=== PATIENT | female | born 1940 | race Caucasian/White ===

== ENCOUNTER → 2016-12-22 | Outpatient (REF) | payer MEDICARE, OTHER | LOC: M SFHCLACO 09:56 | PROVIDERS: ATTEND Physician Assistant | DX: N89.8 Other specified noninflammatory disorders of vagina (principal) | CPT/HCPCS: 87070; G0463 ==

== ENCOUNTER → 2017-01-13 | Outpatient (CLI) | payer MEDICARE, OTHER ==
--- NOTE | 2017-01-13 10:11 | REP ---
PELVIC SONOGRAPHY: HISTORY: Vaginal discharge. Pelvic pain. Bilateral back pain. FINDINGS: Transabdominal and transvaginal scanning are performed. Uterine dimensions are normal at 6.0 x 2.2 x 4.1 cm. Endometrial echo 0.3 cm thick. No focal uterine mass lesion is seen. No free fluid is noted. Uterus is tipped somewhat to the left. The visualized bladder mosqueda are smooth. Normal ovaries are seen bilaterally. Right ovary dimensions are 1.5 x 0.7 x 0.6 cm. Left ovary measures 1.9 x 0.9 x 1.8 cm. IMPRESSION: Normal pelvic sonography.
--- NOTE | 2017-01-13 11:55 | REP ---
BILATERAL SCREENING DIGITAL MAMMOGRAM: There are no palpable abnormalities or other breast complaints. The patient states she had a clinical breast exam in December 13, 2016. The comparison is 08/23/2010. There is moderately dense breast parenchyma, unchanged. There are scattered punctate benign calcifications, unchanged. There has been no interval development of masses, areas of structural distortion or clusters of microcalcifications typical of malignancy. IMPRESSION: There is no evidence of malignancy. BI-RADS/ACR category 2 mammogram. Benign finding(s). Routine annual screening mammography (for women over age 40). The patient should have a repeat mammogram in 1 year. This mammogram was interpreted with the aid of an FDA-approved computer-aided detection system. Patient letter M1. SHAR
== END ==
LOC: M WHC 07:51
PROVIDERS: ATTEND Physician Assistant
DX: Z12.31 Encounter for screening mammogram for malignant neoplasm of breast (principal); R10.2 Pelvic and perineal pain; N89.8 Other specified noninflammatory disorders of vagina
CPT/HCPCS: 76830; 76856; G0202

== ENCOUNTER → 2017-06-13 | Outpatient (REF) | payer MEDICARE, OTHER ==
[2017-06-13 14:59] LABS: ALBUMIN 3.8 GM/DL (3.2-5.2); ALBUMIN/GLOBULIN RATIO 1.23 (1.00-1.93); BILIRUBIN,TOTAL 0.3 MG/DL (0.2-1.0); CALCIUM LEVEL 8.9 MG/DL (8.8-10.2); CREATININE FOR GFR 1.05 MG/DL (0.55-1.02); GLOMERULAR FILTRATION RATE 54.4 (>39); MAGNESIUM LEVEL 2.3 MG/DL (1.8-2.4); POTASSIUM SERUM 4.5 MEQ/L (3.5-5.1); TOTAL PROTEIN 6.9 GM/DL (6.4-8.2)
== END ==
LOC: M SFHCLACO 08:18
PROVIDERS: ATTEND Physician Assistant
DX: E78.2 Mixed hyperlipidemia (principal); Z68.31 Body mass index [BMI] 31.0-31.9, adult; E61.2 Magnesium deficiency; E55.9 Vitamin D deficiency, unspecified

== ENCOUNTER → 2017-07-07 | Outpatient (REF) | payer MEDICARE, OTHER | LOC: M LAB REF 18:19 | DX: C44.42 Squamous cell carcinoma of skin of scalp and neck (principal) | CPT/HCPCS: 88305 ==

== ENCOUNTER → 2017-08-07 | Outpatient (CLI) | payer MEDICARE, OTHER ==
[~2017-08-07] MED LIST: GASTROGRAFIN SOLUTION 30ML (Q9963) As Ordered; ISOVUE-370 76% 100ML VIAL (Q9967) As Ordered
== END ==
LOC: M RAD 10:46
DX: R05 Cough (principal); R10.9 Unspecified abdominal pain
CPT/HCPCS: Q9963

== ENCOUNTER 2017-11-17 10:14 | Day surgery (SDC) | payer MEDICARE, OTHER ==
[2017-11-17] MEDS: NS 1,000 ML IV (10:30)
[2017-11-17] MEDS ORDERED: PROPOFOL 200 MG/20 ML VIAL As Ordered (12:14)
[2017-11-17] MEDS ORDERED: LIDOCAINE 2% INJ 100 MG/5 ML SDV (FOR ANES.) As Ordered (12:14)
== END 2017-11-17 13:06 | disposition home or self-care (01) ==
LOC: M OPP 10:14
DX: R19.4 Change in bowel habit (principal); K59.00 Constipation, unspecified; K57.30 Diverticulosis of large intestine without perforation or abscess without bleeding; K64.8 Other hemorrhoids; K21.9 Gastro-esophageal reflux disease without esophagitis; R12 Heartburn; E78.5 Hyperlipidemia, unspecified; C91.10 Chronic lymphocytic leukemia of B-cell type not having achieved remission; Z92.21 Personal history of antineoplastic chemotherapy; D64.9 Anemia, unspecified; M19.90 Unspecified osteoarthritis, unspecified site; M54.2 Cervicalgia; Z78.0 Asymptomatic menopausal state; Z85.828 Personal history of other malignant neoplasm of skin; Z87.891 Personal history of nicotine dependence; Z88.8 Allergy status to other drugs, medicaments and biological substances; Z79.899 Other long term (current) drug therapy
CPT/HCPCS: 45378

== ENCOUNTER → 2017-12-19 | Outpatient (REF) | payer MEDICARE, OTHER ==
[2017-12-19 15:25] LABS: ALBUMIN 3.7 GM/DL (3.2-5.2); ALBUMIN/GLOBULIN RATIO 1.23 (1.00-1.93); ALKALINE PHOSPHATASE 75 U/L (45-117); ALT/SGPT 31 U/L (12-78); ANION GAP 11 MEQ/L (8-16); AST/SGOT 15 U/L (7-37); BILIRUBIN,TOTAL 0.3 MG/DL (0.2-1.0); BLOOD UREA NITROGEN 13 MG/DL (7-18); CALCIUM LEVEL 8.8 MG/DL (8.8-10.2); CARBON DIOXIDE LEVEL 30 MEQ/L (21-32); CHLORIDE LEVEL 106 MEQ/L (98-107); CHOLESTEROL LEVEL 209 MG/DL (<200); CHOLESTEROL RISK RATIO 2.824 (<5); CREATININE FOR GFR 0.99 MG/DL (0.55-1.30); GLOMERULAR FILTRATION RATE 58.2 (>39); GLUCOSE, FASTING 88 MG/DL (70-100); HDL CHOLESTEROL 74 MG/DL (>40); LDL CHOLESTEROL 105.4 MG/DL (<100); MAGNESIUM LEVEL 2.4 MG/DL (1.8-2.4); NON-HDL-C 135 MG/DL; POTASSIUM SERUM 4.3 MEQ/L (3.5-5.1); SODIUM LEVEL 147 MEQ/L (136-145); TOTAL PROTEIN 6.7 GM/DL (6.4-8.2); TRIGLYCERIDES LEVEL 148 MG/DL (<150)
[2017-12-19 15:28] LABS: TOTAL 25(OH) VITAMIN D 23.1 NG/ML (30.0-100.0)
== END ==
LOC: M SFHCLACO 08:05
DX: E78.2 Mixed hyperlipidemia (principal); E61.2 Magnesium deficiency; E55.9 Vitamin D deficiency, unspecified; Z68.31 Body mass index [BMI] 31.0-31.9, adult
CPT/HCPCS: 83735

== ENCOUNTER → 2017-12-25 | Outpatient (CLI) | payer MEDICARE, OTHER | LOC: M WHC 10:15 | DX: Z12.31 Encounter for screening mammogram for malignant neoplasm of breast (principal) | CPT/HCPCS: 77067 ==

== ENCOUNTER → 2018-04-20 | Outpatient (REF) | payer MEDICARE, OTHER | LOC: M SFHCWAGY 14:06 | DX: Z12.4 Encounter for screening for malignant neoplasm of cervix (principal); N95.2 Postmenopausal atrophic vaginitis | CPT/HCPCS: G0123 ==

== ENCOUNTER → 2018-04-24 | Outpatient (CLI) | payer MEDICARE, OTHER | LOC: M WHC 09:29 | DX: N89.8 Other specified noninflammatory disorders of vagina (principal); R93.89 Abnormal findings on diagnostic imaging of other specified body structures | CPT/HCPCS: 76830 ==

== ENCOUNTER 2018-06-13 12:48 | Inpatient (IN) | payer MEDICARE, OTHER ==
[2018-06-13 13:27] LABS: BEDSIDE GLUCOSE 81 MG/DL (83-110)
[2018-06-13 14:22] LABS: BASO % 0.4 % (0.0-1.0); EOS % 0.6 % (0.0-3.0); HEMATOCRIT 39.8 % (36.0-47.0); HEMOGLOBIN 12.7 g/dl (12.0-15.5); IMMATURE GRANULOCYTE % 0.2 % (0-3.0); LYMPH # 0.6 10^3/uL (1.5-4.5); LYMPH % 12.7 % (24.0-44.0); MEAN CORPUSCULAR HEMOGLOBIN 30.9 pg (27.0-33.0); MEAN CORPUSCULAR HGB CONC 31.9 g/dl (32.0-36.5); MEAN CORPUSCULAR VOLUME 96.8 fl (80.0-96.0); MONO # 0.6 10^3/uL (0.0-0.8); MONO % 12.7 % (0.0-5.0); NEUTROPHILS # 3.6 10^3/uL (1.8-7.7); NEUTROPHILS % 73.4 % (36.0-66.0); PLATELET COUNT, AUTOMATED 117 10^3/uL (150-450); RED BLOOD COUNT 4.11 10^6/uL (4.00-5.40); RED CELL DISTRIBUTION WIDTH 12.8 % (11.5-14.5); WHITE BLOOD COUNT 4.9 10^3/uL (4.0-10.0)
[2018-06-13 14:36] LABS: KETONE, URINE AUTO RFX NEGATIVE (NEGATIVE); LEUKOCYTE ESTERASE UR AUTO RFX TRACE (NEGATIVE); MICROSCOPIC INDICATED? RFX YES (NO); MUCUS, URINE RFX SMALL (NEGATIVE); NITRITE, URINE AUTO RFX NEGATIVE (NEGATIVE); RBC, URINE AUTO RFX 4 /HPF (0-3); SPECIFIC GRAVITY UR AUTO RFX 1.012 (1.002-1.035); SQUAM EPITHELIAL CELL UR AURFX 8 /HPF (0-6); WBC, URINE AUTO RFX 5 /HPF (0-3)
[2018-06-13 14:58] LABS: ANION GAP 9 MEQ/L (8-16); BLOOD UREA NITROGEN 18 MG/DL (7-18); CALCIUM LEVEL 8.6 MG/DL (8.8-10.2); CARBON DIOXIDE LEVEL 29 MEQ/L (21-32); CHLORIDE LEVEL 101 MEQ/L (98-107); CK-MB VALUE MASS < 1.0 NG/ML (<3.6); CPK CREATINE PHOSPHOKINASE 27 U/L (26-192); CREATININE FOR GFR 1.13 MG/DL (0.55-1.30); GLOMERULAR FILTRATION RATE 49.8 (>39); GLUCOSE, FASTING 95 MG/DL (70-100); LIPASE 283 U/L (73-393); POTASSIUM SERUM 4.2 MEQ/L (3.5-5.1); SODIUM LEVEL 139 MEQ/L (136-145); THYROID STIMULATING HORMONE 0.901 uIU/ML (0.358-3.740); TROPONIN I < 0.02 NG/ML (< 0.10)
[2018-06-13] MEDS ORDERED: ISOVUE-370 76% 100ML VIAL (Q9967) As Ordered (15:09)
[2018-06-13] MEDS ORDERED: ACETAMINOPHEN 500 MG TAB PO (17:15)
[2018-06-13] MEDS ORDERED: ONDANSETRON 4 MG TAB (S0181) PO (17:15)
[2018-06-13] MEDS: NS 1,000 ML IV (17:38)
[2018-06-13] MEDS ORDERED: MECLIZINE 25 MG TABLET PO (18:00)
[2018-06-13 20:02] LABS: MAGNESIUM LEVEL 2.1 MG/DL (1.8-2.4)
[2018-06-13] MEDS ORDERED: NITROFURANTOIN (MACROBID) 100 MG CAP PO (21:00)
[2018-06-13] MEDS: GABAPENTIN 100 MG CAP PO (21:28)
[2018-06-13] MEDS: EZETIMIBE 10 MG TAB (ZETIA) PO (21:28)
[2018-06-13] MEDS: MAGNESIUM CHLORIDE 64 MG TABCR (SLO MAG) PO (23:00)
[2018-06-13] MEDS: valACYclovir HCL 500 MG TAB PO (23:00)
[2018-06-14] MEDS: NS 1,000 ML IV (00:48)
[2018-06-14 05:25] LABS: HEMATOCRIT 37.6 % (36.0-47.0); HEMOGLOBIN 11.8 g/dl (12.0-15.5); MEAN CORPUSCULAR HEMOGLOBIN 30.3 pg (27.0-33.0); MEAN CORPUSCULAR HGB CONC 31.4 g/dl (32.0-36.5); MEAN CORPUSCULAR VOLUME 96.7 fl (80.0-96.0); PLATELET COUNT, AUTOMATED 101 10^3/uL (150-450); RED BLOOD COUNT 3.89 10^6/uL (4.00-5.40); RED CELL DISTRIBUTION WIDTH 12.9 % (11.5-14.5); WHITE BLOOD COUNT 3.8 10^3/uL (4.0-10.0)
[2018-06-14 05:40] LABS: ANION GAP 5 MEQ/L (8-16); BLOOD UREA NITROGEN 15 MG/DL (7-18); CARBON DIOXIDE LEVEL 30 MEQ/L (21-32); CHLORIDE LEVEL 105 MEQ/L (98-107); CREATININE FOR GFR 1.07 MG/DL (0.55-1.30); GLOMERULAR FILTRATION RATE 53.1 (>39); GLUCOSE, FASTING 95 MG/DL (70-100); SODIUM LEVEL 140 MEQ/L (136-145)
[2018-06-14] MEDS ORDERED: PROHANCE 279.3MG/ML 15ML VIAL (A9576) As Ordered (07:48)
[2018-06-14] MEDS: OMEPRAZOLE 20 MG CAP PO (10:18)
[2018-06-14] MEDS: valACYclovir HCL 500 MG TAB PO (10:19)
[2018-06-14] MEDS: VITAMIN D 1,000 INTERNATIONAL UNITS TABLET PO (10:19)
[2018-06-14] MEDS: GABAPENTIN 100 MG CAP PO (10:19)
[2018-06-15] MEDS ORDERED: PREVNAR 13 VACCINE SYRINGE (CPT CODE:90670) IM (09:00)
== END 2018-06-14 13:05 | disposition home or self-care (01) | DRG 312 ==
LOC: M ED 12:48 → M ED INP 17:37 → M PCU 21:05
PROVIDERS: Hospitalist
DX: R55 Syncope and collapse (principal); C91.10 Chronic lymphocytic leukemia of B-cell type not having achieved remission; R42 Dizziness and giddiness; K21.9 Gastro-esophageal reflux disease without esophagitis; N18.3 Chronic kidney disease, stage 3 (moderate); E66.9 Obesity, unspecified; Z79.899 Other long term (current) drug therapy; Z88.8 Allergy status to other drugs, medicaments and biological substances; E78.5 Hyperlipidemia, unspecified; Z87.891 Personal history of nicotine dependence; K57.30 Diverticulosis of large intestine without perforation or abscess without bleeding

== ENCOUNTER → 2018-12-24 | Outpatient (CLI) | payer MEDICARE, OTHER ==
[~2018-12-24] MED LIST changes: +AZIT-12 PO; +CITRTAB19 PO; +FISH7.5C PO; +FLAX10002 PO; +GABA-1171 PO; -GASTROGRAFIN SOLUTION 30ML (Q9963) As Ordered; -ISOVUE-370 76% 100ML VIAL (Q9967) As Ordered; +MAGN64TASA PO; +MECL1TAB31 PO; +MIRA33504 PO; +MULT1CHW44 PO; +MULT1TAB9 PO; +OMEP40CA97 PO; +ONDA4TAB6 PO; +PREV4POW PO; +SALI0.6528; +SINUPOW7; +TYLE650T35 PO; +VALA1TAB64 PO; +VALT500T PO; +VITA100067 PO; +ZETI10TA16 PO
--- NOTE | 2018-12-24 09:45 | REPMRS ---
Patient History The patient states she had a clinical breast exam in 11/2018. Patient is postmenopausal, had previous chemotherapy at age 75, and has history of skin cancer at age 70 and leukemia at age 75. No known family history of cancer. No Hormone Replacement Therapy 3D TOMOSYNTHESIS WAS PERFORMED. [facility] lifetime risk for breast cancer is 2.6%. Digital Woman Screen Mammo: December 24, 2018 - Exam #: [id number] Bilateral CC and MLO view(s) were taken. Technologist: Julieta Dunlap, Technologist Prior study comparison: December 25, 2017, bilateral digital woman screen mammo performed at [facility]. January 13, 2017, digital woman screen mammo performed at [facility]. FINDINGS: There are scattered fibroglandular densities. There has been no change in the appearance of the mammogram from the prior studies. There is a mild amount of residual fibroglandular tissue which is fairly symmetric. There is no interval development of dominant mass, architectural distortion, or clustered microcalcification suggestive of malignancy. Assessment: BI-RADS/ACR category 1 mammogram. Negative Mammogram. Recommendation Routine screening mammogram in 1 year (for women over age 40). This mammogram was interpreted with the aid of an FDA-approved computer-aided dectection system. Electronically Signed By: Alexei Gaston MD 12/24/18 0944
== END ==
LOC: M WHC 08:54
PROVIDERS: ATTEND Physician Assistant
DX: Z12.31 Encounter for screening mammogram for malignant neoplasm of breast (principal); Z85.828 Personal history of other malignant neoplasm of skin; Z92.21 Personal history of antineoplastic chemotherapy; Z85.6 Personal history of leukemia

== ENCOUNTER → 2019-06-25 | Outpatient (REF) | payer MEDICARE, OTHER | LOC: M LAB REF 15:54 | PROVIDERS: ATTEND Dermatology | DX: C44.321 Squamous cell carcinoma of skin of nose (principal); D23.71 Other benign neoplasm of skin of right lower limb, including hip | CPT/HCPCS: 11102; 11103; 17000; 17110; 88305; G0463 ==

== ENCOUNTER → 2019-07-19 | Outpatient (CLI) | payer MEDICARE, OTHER ==
[~2019-07-19] MED LIST changes: +GASTROGRAFIN SOLUTION 30ML (Q9963) As Ordered ONE; +ISOVUE-370 76% 100ML VIAL (Q9967) As Ordered ONE
--- NOTE | 2019-07-19 18:34 | REP ---
CT PELVIS WITH ORAL AND IV CONTRAST: 07/19/2019. Comparison: 08/07/2017, CT abdomen pelvis: Clinical history: CLL restaging. Technique: Oral Gastrografin 10 ml in 290 ml flavored water for two doses per our bowel contrast protocol along with bolus 100 ml Isovue 370 IV scanning through the pelvis and with reconstructions provided. Bone windows are also reviewed. Findings: The lower poles of kidneys are unremarkable. Those portions of small bowel loops in the lower abdomen and pelvis contrast or fluid-filled not abnormally dilated. Abdominal portion and pelvic portion of the colon show scattered distal left colonic and sigmoid diverticulosis without diverticulitis, colitis, stricture or mass. Uterus not enlarged. No adnexal mass and no pelvic free fluid. No ventral or inguinal hernia nor pathologic sized inguinal adenopathy. I do not see pelvic lymphadenopathy or mass. No fluid in the peritoneal gutters. There is no dilated ureter visible in the lower abdomen and pelvis ureters to the bladder seen here are without stone. No bladder stone, mass or abnormal wall thickening with the bladder only partially filled. Bone windows show the sacrum, iliac bones, acetabuli, hips and ischia without destructive lesion or fracture. There are some degenerative changes in the hips and SI joints as well as lower lumbar spine. Impression: 1. No pelvic or lower abdominal adenopathy, inguinal adenopathy or pelvic mass. 2. No pelvic free fluid. 3. Diverticulosis without diverticulitis, colitis, stricture or mass involving the colon. 4. No inflammatory changes about the cecum. Appendix is absent. Small bowel loops intact. 5. Next no ventral or inguinal hernia. Electronically Signed by Larry Chowdhury MD 07/19/2019 08:52 P
== END ==
LOC: M RAD 14:41
PROVIDERS: ATTEND Internal Medicine Hematology & Oncology
DX: C91.10 Chronic lymphocytic leukemia of B-cell type not having achieved remission (principal)
CPT/HCPCS: 72193; Q9963; Q9967

== ENCOUNTER → 2019-08-02 | Outpatient (CLI) | payer MEDICARE, OTHER ==
[~2019-08-02] MED LIST changes: +COLA100C5 PO; -GASTROGRAFIN SOLUTION 30ML (Q9963) As Ordered ONE; +GNP1000C11 PO; -ISOVUE-370 76% 100ML VIAL (Q9967) As Ordered ONE; +MIRA3350 PO; +QUES4POW PO; +VALA1TAB5 PO; -VALA1TAB64 PO; +VITAD1000T PO; +VITMTA PO
--- NOTE | 2019-08-03 17:21 | REPVR ---
PROCEDURE INFORMATION: Exam: MR Cervical Spine Without and With Contrast Exam date and time: 08/02/2019 10:28 AM Age: 79 years old Clinical indication: Radicular pain (radiculopathy); Location of radicular pain not specified; Additional info: Lbp w/ radiculopathy - neck pain monalisa hand tingling TECHNIQUE: Imaging protocol: Multiplanar magnetic resonance images of the cervical spine without and with intravenous contrast. Contrast material: PROHANCE; Contrast volume: 8 ml; Contrast route: IV; COMPARISON: MRA CAROTID W/O FOL WITH 06/14/2018 8:03 AM FINDINGS: Vertebrae: Normal alignment. Spinal cord: Vague focus of increased cord signal on T2 weighted imaging in the right paracentral aspect of the spinal cord at C2-C3 without corresponding abnormalities on T1 weighted, stir weighted or postcontrast imaging. Unclear the finding is artifactual. A small focus of early demyelination not absolutely excluded. C2-C3: Examination C2-C3 demonstrates unremarkable appearance of the disc. There is mild foraminal narrowing on the right secondary to uncinate joint hypertrophic changes. C3-C4: No significant disc disease. No significant spinal stenosis. C4-C5: Examination of C4-C5 demonstrates intervertebral osteophytes with a broad posterior hard disc protrusion effacing the ventral subarachnoid space with mild cord impingement. There is increased marrow signal adjacent to the inferior endplate of C4 and superior endplate of C5 associated with increased intra discal signal. Although the findings may be degenerative the presence of increased signal in the disc is worrisome for discitis. No significant marrow enhancement on post-contrast imaging. There is moderate bilateral foraminal stenosis secondary to uncinate joint hypertrophic change. C5-C6: Disc space narrowing at C5-C6 with intervertebral osteophytes effacing the ventral subarachnoid space abutting but not compressing the spinal cord. There is moderate to severe bilateral foraminal stenosis secondary to uncinate joint hypertrophic changes. C6-C7: No significant disc disease. No significant spinal stenosis. C7-T1: Unremarkable. Vertebral arteries: Expected flow voids in the vertebral arteries. Soft tissues: Otherwise unremarkable. IMPRESSION: 1. Findings at C4-C5 worrisome for discitis. 2. Vague focus of T2 bright signal in the right erlin cord at C2-C3. As indicated above the finding may be artifactual although an focus of demyelination not excluded. No abnormal enhancement. 3. Multilevel foraminal stenosis as described above. Mild cord impingement secondary to intervertebral osteophytes and bulging annulus at C4-C5. Electronically signed by: Abelino Calvo On 08/03/2019 17:20:49 PM
--- NOTE | 2019-08-03 17:33 | REPVR ---
PROCEDURE INFORMATION: Exam: MR Lumbar Spine Without and With Contrast. Exam date and time: 08/02/2019 10:28 AM Age: 79 years old Clinical indication: Pain; Lumbago with sciatica; Left; Additional info: Lbp w/ radiculopathy - neck pain monalisa hand tingling TECHNIQUE: Imaging protocol: Multiplanar magnetic resonance images of the lumbar spine without and with intravenous contrast. Contrast material: PROHANCE; Contrast volume: 10 ml; Contrast route: IV; COMPARISON: No relevant prior studies available. FINDINGS: Vertebrae: Normal alignment. Schmorl's node inferior endplate of L4. There is enhancement demonstrated within the Schmorl's node which may suggest a subacute etiology. Spinal cord: Normal signal. No cord compression. No abnormal enhancement. L1-L2: No significant disc disease. No significant spinal canal stenosis. No neural foraminal stenosis. L2-L3: There is a mild central spinal stenosis at L2-L3 secondary to diffuse annular bulging, thickened ligamentum flavum with mild facet joint arthropathy. No lateral recess stenosis. No foraminal stenosis. L3-L4: There is a moderate central spinal stenosis at L3-L4 secondary to diffuse annular bulging, thickened ligamentum flavum with facet joint arthropathy. No lateral recess stenosis. No foraminal stenosis. L4-L5: There is a mild central spinal stenosis at L4-L5 secondary to diffuse annular bulging, thickened ligamentum flavum with facet joint arthropathy. No lateral recess stenosis. No foraminal stenosis. L5-S1: Broad right paracentral disc protrusion L5-S1 without obvious neural impingement the supine position. Bilateral facet joint arthropathy. Soft tissues: Unremarkable. IMPRESSION: 1. Schmorl's node inferior endplate of L4. There is enhancement demonstrated within the Schmorl's node which may suggest a subacute etiology. 2. Multilevel spinal stenoses, mild at L2-L3, moderate L3-L4, and mild at L4-L5. Also noted is a broad right paracentral disc protrusion at L5-S1 without obvious neural compromise. Electronically signed by: Abelino aClvo On 08/03/2019 17:32:40 PM
--- NOTE | 2019-08-07 14:48 | MEDONCTEEN ---
Date/Time of Encounter Date of Encounter: Aug 07, 2019 Telephone Encounter Called patient with Mri c spine reading of discitis- no answer, unavailable, left msg to call back before 3:30pm as I will be out of the office by 3:45 or 4pm, requested assistant front desk manager to call PCP for discussion since i'm travelling today and will be out tomorrow. 327pm- MD called but he was not PCP- gave me number [phone] to reach Therese Rodney NP. Closed but office closed was given [phone]. Called and waited, was told they need to find out where she is today, was on hold for another. WAs advised by weekend receptionist that PCP was not in office and no info given for another MD or physician color worker. Called to discuss w/ ER MD Dr. anna that and notified Anita DIAS to call patient to be seen in ER. Sign out given to Dr. Nina Lux, regarding situation. MARLEY BROWN MD Aug 07, 2019 14:48
== END ==
LOC: M PLARAD 07:25
PROVIDERS: ATTEND Internal Medicine Hematology & Oncology
DX: M54.5 Low back pain (principal); M54.2 Cervicalgia

== ENCOUNTER 2019-08-07 17:57 | Inpatient (IN) | payer MEDICARE, OTHER ==
[~2019-08-07] VITALS: Ht 167.6 cm; Wt 91.4 kg
[~2019-08-07 17:57] MED LIST changes: -COLA100C5 PO; -GNP1000C11 PO; -MIRA3350 PO; -QUES4POW PO; -VITAD1000T PO; -VITMTA PO
[2019-08-07] MEDS ORDERED: GNP1000C11 PO (19:49)
[2019-08-07] MEDS ORDERED: VITMTA PO (19:49)
[2019-08-07] MEDS ORDERED: MIRA3350 PO (19:49)
[2019-08-07] MEDS ORDERED: QUES4POW PO (19:49)
[2019-08-07] MEDS ORDERED: COLA100C5 PO (19:49)
[2019-08-07] MEDS ORDERED: VITAD1000T PO (19:49)
--- NOTE | 2019-08-07 20:22 | ECGEPIP ---
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
[2019-08-07 20:40] LABS: BASO % 0.5 % (0.0-1.0); EOS # 0.1 10^3/uL (0.0-0.5); EOS % 1.1 % (0.0-3.0); HEMATOCRIT 37.3 % (36.0-47.0); HEMOGLOBIN 12.2 g/dl (12.0-15.5); LYMPH # 1.3 10^3/uL (1.5-5.0); LYMPH % 30.7 % (24.0-44.0); MEAN CORPUSCULAR HEMOGLOBIN 30.7 pg (27.0-33.0); MEAN CORPUSCULAR HGB CONC 32.7 g/dl (32.0-36.5); MEAN CORPUSCULAR VOLUME 93.7 fl (80.0-96.0); MONO # 0.4 10^3/uL (0.0-0.8); MONO % 10.1 % (0.0-5.0); NEUTROPHILS # 2.5 10^3/uL (1.5-8.5); NEUTROPHILS % 57.6 % (36.0-66.0); PLATELET COUNT, AUTOMATED 151 10^3/uL (150-450); RED BLOOD COUNT 3.98 10^6/uL (4.00-5.40); WHITE BLOOD COUNT 4.4 10^3/uL (4.0-10.0)
[2019-08-07] MEDS: EZETIMIBE 10 MG TAB (ZETIA) PO SCH (21:00)
[2019-08-07] MEDS: DOCUSATE SODIUM 100 MG CAP PO SCH (21:00)
[2019-08-07] MEDS: CHOLESTYRAMINE 4 GM PWD PKT PO SCH (21:00)
[2019-08-07 21:12] LABS: BLOOD UREA NITROGEN 19 MG/DL (7-18); CALCIUM LEVEL 9.5 MG/DL (8.8-10.2); CARBON DIOXIDE LEVEL 28 MEQ/L (21-32); CHLORIDE LEVEL 106 MEQ/L (98-107); CK-MB VALUE MASS 1.2 NG/ML (<3.6); CPK CREATINE PHOSPHOKINASE 50 U/L (26-192); CREATININE FOR GFR 1.02 MG/DL (0.55-1.30); GLOMERULAR FILTRATION RATE 55.9 (>39); GLUCOSE, FASTING 93 MG/DL (70-100); POTASSIUM SERUM 3.8 MEQ/L (3.5-5.1); SODIUM LEVEL 141 MEQ/L (136-145); TROPONIN I < 0.02 NG/ML (< 0.10)
[2019-08-07 21:14] LABS: ERYTHROCYTE SEDIMENTATION RATE 10 mm/hr (0-30)
[2019-08-07] MEDS ORDERED: VANCOMYCIN HCL 1,000 MG, VIAL MATE ADAPTER 1 EACH in D5W 250 ML IV ONE (21:30)
[2019-08-07] MEDS ORDERED: CEFEPIME HCL 2 GM in D5W MINI-BAG PLUS 50 ML IV ONE (21:30)
--- NOTE | 2019-08-07 22:04 | HPEPDOC ---
General Date of Admission 08/07/19 Date of Service: Aug 07, 2019 Chief Complaint The patient is a 79-year-old female admitted with a reason for visit of General Medical. Source: Patient Exam Limitations: No limitations Timing/Duration: Week(s) Severity: Mild History of Present Illness Patient is 79 years old female with past medical history of CLL, vertigo, hyperlipidemia presented to the hospital with increased neck pain. Patient stated that neck pain radiated to the lumbar area, is also associated with hands numbness and tingling bilaterally. Patient stated that she developed these symptoms for past month. Patient was seen by oncologist and recommended MRI of the spine. MRI of the spine showed findings at C4-C5 worrisome for discitis. Patient denied any fever, chills, nausea, vomiting, diarrhea or dysuria. Patient denied any fecal or urinary incontinence. In ER patient was found to have no leukocytosis, no fever. Cefepime IV started Home Medications Scheduled Acetaminophen (Tylenol Arthritis) 650 Mg Tab, 1,300 MG PO BID, (Reported) Calcium Carb, Citrate/Vit D3 (Citracal + D ER Tablet) 1 Tab Tab, 1 TAB PO DAILY, (Reported) Cholecalciferol (Vitamin D3) (Vitamin D3) 1,000 Unit Tablet, 1,000 UNITS PO DAILY, (Reported) Cholestyramine (with Sugar) (Questran Packet) 4 Gm Powd.pack, 4 GM PO QHS, (Reported) Docusate Sodium (Colace) 100 Mg Capsule, 100 MG PO QHS, (Reported) Ezetimibe (Zetia) 10 Mg Tab, 10 MG PO QHS, (Reported) Flaxseed Oil (Flaxseed) 1,000 Mg Capsule, 1 CAP PO DAILY, (Reported) Multivitamins (Thera M Plus Tablet) 1 Each Tablet, 1 TAB PO DAILY, (Reported) [place]-3/Dha/Epa/Fish Oil (Fish Oil EC 1,000 mg Softgel) 1 Cap Cap, 1 CAP PO BID, (Reported) Omeprazole (Omeprazole) 40 Mg Cap, 40 MG PO DAILY, (Reported) Scheduled PRN Gabapentin (Gabapentin) 100 Mg Cap, 100 MG PO TID PRN for PAIN, (Reported) Meclizine HCl (Meclizine HCl) 25 Mg Tab, 25 MG PO for DIZZINESS, (Reported) Ondansetron (Ondansetron Odt) 4 Mg Tab, 4 MG PO Q8H PRN for NAUSEA, (Reported) Polyethylene Glycol 3350 (Miralax) 119 Gm Powder, 17 GM PO DAILY PRN for CONSTIPATION, (Reported) dilute in 8 ounces of water or juice Allergies Coded Allergies: Qmivryn-Qxs-Saf Reductase Inhibitor (Verified Adverse Reaction, Unknown, LEG CRAMPS, 09/27/18) Past Medical History Medical History HYPERLIPIDEMIA GERD CHRONIC LYMPHOCYTIC LEUKEMIA VERTIGO COLONOSCOPY 09/29/2011 Surgical History APPENDECTOMY 1977 ABDOMINAL CYSTS 2001 CATARACTS BILATERAL Family History FATHER: 66 YRS, CAR CRASH MOTHER: 66 YRS, HEART ATTACK SIBLINGS: 513 YRS, ONE BROTHER WITH A BRAIN TUMOR 2 BROTHER(S) , 3 SISTER(S) - HEALTHY. 3 SON(S) , 1 DAUGHTER(S) - HEALTHY. DENIES ANY FAMILY HISTORY OF SKIN OR PANCREATIC CANCER. Social History * Smoker: Denies, former Smoker Alcohol: Denies Drugs: denies A-FIB/CHADSVASC A-FIB History Current/History of A-Fib/PAF?: No Current PO Anticoag Therapy: No Review of Systems Constitutional: Denies: Chills, Fever Eyes: Denies: Pain, Vision change ENT: Denies: Head Aches Skin: Denies: Rash, Lesions Pulmonary: Denies: Dyspnea, Cough Cardiovascular: Denies: Chest Pain Gastrointestinal: Denies: Nausea, Vomiting Genitourinary: Denies: Dysuria, Frequency Hematologic: Denies: Bruising Endocrine: Denies: Polydipsia Musculoskeletal: Reports: Neck Pain, Back Pain Neurological: Reports: Numbness (hands numbness bilaterally) Psych: Reports: Mood Normal Physical Examination General Exam: Positive: Alert Eye Exam: Positive: PERRLA ENT Exam: Positive: Atraumatic Neck Exam: Positive: Supple; Negative: JVD Chest Exam: Positive: Clear to auscultation Heart Exam: Positive: Rate Normal Telemetry: Positive: No significant arrhythmia Abdomen Exam: Positive: Normal bowel sounds Extremity Exam: Negative: Clubbing, Cyanosis Skin Exam: Positive: Nl turgor and temperature Neuro Exam: Positive: Strength at 5/5 X4 ext, Cranial Nerves 3-12 NL Psych Exam: Positive: Mental status NL Vital Signs Vital Signs Date Time Temp Pulse Resp B/P (MAP) Pulse Ox O2 Delivery O2 Flow Rate FiO2 08/07/19 21:15 160/79 (106) 08/07/19 21:12 85 18 95 Nasal Cannula 2.0 08/07/19 17:58 97.1 Laboratory Data Labs 24H Laboratory Tests 2 08/07/19 20:26: Immature Granulocyte % (Auto) 0.0, Neutrophils (%) (Auto) 57.6, Lymphocytes (%) (Auto) 30.7, Monocytes (%) (Auto) 10.1H, Eosinophils (%) (Auto) 1.1, Basophils (%) (Auto) 0.5, Neutrophils # (Auto) 2.5, Lymphocytes # (Auto) 1.3L, Monocytes # (Auto) 0.4, Eosinophils # (Auto) 0.1, Basophils # (Auto) 0.0, Nucleated Red Blood Cells % (auto) 0.0, Erythrocyte Sedimentation Rate 10, Anion Gap 7L, Glomerular Filtration Rate 55.9, Lactic Acid Level 1.0, Calcium Level 9.5, Total Creatine Kinase 50, Creatine Kinase MB 1.2, Creatine Kinase MB Relative Index 2.40, Troponin I < 0.02, C-Reactive Protein, Quantitative 0.30 CBC/BMP Laboratory Tests 08/07/19 20:26 Microbiology Microbiology 08/07/19 Blood Culture, Received Pending Assessment/Plan Patient is 79 years old female with past medical history of CLL, vertigo, hyperlipidemia presented to the hospital with increased neck pain. Patient stated that neck pain radiated to the lumbar area, is also associated with hands numbness and tingling bilaterally. Patient stated that she developed these symptoms for past month. Patient was seen by oncologist and recommended MRI of the spine. MRI of the spine showed findings at C4-C5 worrisome for discitis. Patient denied any fever, chills, nausea, vomiting, diarrhea or dysuria. Patient denied any fecal or urinary incontinence. In ER patient was found to have no leukocytosis, no fever Problems (1) Discitis of cervical region Status: Acute Problem Text: Unknown etiology for now Most likely hematogenous spread. Also patient immunocompromised due to CLL Blood culture, urine culture We will check CRP, ESR Pro calcitonin Cefepime, vancomycin Appreciate agree with ID consult (2) Chronic lymphocytic leukemia of B-cell type in remission Status: Chronic Problem Text: Follow-up with oncologist in outpatient settings Plan / VTE VTE Prophylaxis Ordered?: Yes TIFFANY GAYLE DO Aug 07, 2019 22:04
--- NOTE | 2019-08-07 22:24 | PHACANCOPD ---
PHARMACY VANCOMYCIN DOSING Pt Demographics Demographics Patient Age:79 , Weight:92.500 , Gender: female Adjusted Body Weight Date: 08/07/19, Adjusted Body Weight: Kg Events Past 24 Hours Events Past 24 Hours: NO: Dialysis, Diuretic Therapy, Change in CrCl, Fever, Elevation in WBC, Pending Diagnostics, Pending Procedures, Other Vancomycin Vancomycin Target Ranges: 15-20 mcg/ml Vancomycin Load Y/N: Yes Load Dose Date Time Vancomycin Load Dose: 2000mg Date: 08-07 Time: 2299 Vancomycin Dose Date: 08/07/19. Current Vancomycin Dose: [1000mg q12h] Intermittent Dosing?: No Labs Labs Item Value Date Time White Blood Count 4.4 10^3/uL 08/07/192025 Creatinine 1.02 MG/DL 08/07/192025 Blood Urea Nitrogen 19 MG/DL H 08/07/192025 Glomerular Filtration Rate 55.9 08/07/192025 Vital Signs Label Value Date Time Patient Temperature 97.1 degrees F 08/07/19 1758 Temperature Source Temporal 08/07/19 175 Micro Microbiology 08/07/19 Blood Culture, Received Pending Creatinine Clearance Date:08/07/19. Creatinine Clearance: [~45]. Pending Labs Trough 02- @2300 Assessment and Plan Maintaining Current Dose?: Yes Reason for dose change: No Dose Change Pharmacist Note Pharmacist Note Date: 08/07/19. Pharmacist note:Will monitor and make adjustments as needed. [facility] Aug 07, 2019 22:24
[2019-08-07 23:21] VITALS: BP 162/87
[2019-08-07 23:32] VITALS: BP 139/80
[2019-08-08] MEDS: VANCOMYCIN HCL 1,000 MG, VIAL MATE ADAPTER 1 EACH in D5W 250 ML IV SCH ×2 (00:47→11:37)
[2019-08-08] MEDS ORDERED: GABAPENTIN 100 MG CAP PO PRN (01:00)
[2019-08-08] MEDS: ACETAMINOPHEN 650MG ER TAB (TYLENOL ARTHRITIS) PO SCH ×3 (01:36→22:05)
[2019-08-08] MEDS ORDERED: MECLIZINE 25 MG TABLET PO PRN (03:15)
[2019-08-08] MEDS ORDERED: ONDANSETRON 4 MG ORAL DISINTEGRATING TAB (Q0162 PER 1MG) PO PRN (03:15)
[2019-08-08] MEDS ORDERED: MIRALAX *UNIT DOSE* 17GM PACKET PO PRN (03:15)
[2019-08-08 05:29] VITALS: BP 131/72
--- NOTE | 2019-08-08 07:26 | REP ---
PORTABLE CHEST, SINGLE VIEW: There is no evidence of acute infiltrate. No pleural effusion is seen. The heart is normal in size. The mediastinal silhouette is unremarkable. The visualized osseous structures are intact. IMPRESSION: No acute pulmonary disease. Electronically Signed by Alexei Gaston MD 08/08/2019 01:03 P
[2019-08-08 08:25] LABS: HEMATOCRIT 37.2 % (36.0-47.0); HEMOGLOBIN 12.2 g/dl (12.0-15.5); MEAN CORPUSCULAR HEMOGLOBIN 30.9 pg (27.0-33.0); MEAN CORPUSCULAR HGB CONC 32.8 g/dl (32.0-36.5); MEAN CORPUSCULAR VOLUME 94.2 fl (80.0-96.0); PLATELET COUNT, AUTOMATED 140 10^3/uL (150-450); RED BLOOD COUNT 3.95 10^6/uL (4.00-5.40); WHITE BLOOD COUNT 3.3 10^3/uL (4.0-10.0)
[2019-08-08] MEDS: OMEGA-3 1000MG CAPSULE PO SCH ×2 (08:27→22:05)
[2019-08-08] MEDS: MULTIVITAMINS/MINERALS THERAP 1 TAB PO SCH (08:27)
[2019-08-08] MEDS: VITAMIN D 1,000 INTERNATIONAL UNITS TABLET PO SCH (08:27)
[2019-08-08] MEDS: OMEPRAZOLE 20 MG CAP PO SCH (08:27)
[2019-08-08] MEDS: HEPARIN SOD (PORCINE) 5000 UNITS/ML VIAL (J1644 PER 1000UNITS) SC SCH ×2 (08:28→22:04)
[2019-08-08 08:48] LABS: CALCIUM LEVEL 9.1 MG/DL (8.8-10.2); CREATININE FOR GFR 1.03 MG/DL (0.55-1.30); GLOMERULAR FILTRATION RATE 55.3 (>39); POTASSIUM SERUM 3.9 MEQ/L (3.5-5.1)
--- NOTE | 2019-08-08 12:33 | IPNPDOC ---
Subjective Date Seen The patient was seen on 08/08/19. Subjective Chief Complaint/HPI Patient is comfortable offers no new complaints, in no apparent distress General: Denies: ROS Unobtainable, Chills, Night Sweats, Fatigue, Malaise, Normal Appetite, Other Symptoms Constitutional: Denies: Chills, Fever, Malaise, Night Sweats, Weakness, Fatigue, Weight Loss, Lethargy, Other Pulmonary: Denies: Dyspnea, Cough, Pleuritic Chest Pain, Other Symptoms Cardiovascular: Denies: Chest Pain, Palpitations, Orthopnea, Paroxysmal Noc. Dyspnea, Edema, Lt Headedness, Other Symptoms Gastrointestinal: Denies: Nausea, Vomiting, Abdominal Pain, Diarrhea, Constipation, Melena, Hematochezia, Other Symptoms Musculoskeletal: Denies: Neck Pain, Back Pain, Shoulder Pain, Arm Pain, Hand Pain, Leg Pain, Foot Pain, Joint Pain, Muscle Pain, Spasms, Other Symptoms Neurological: Denies: Weakness, Numbness, Incoordination, Change in speech, Confusion, Seizures, Other Symptoms Objective Physical Examination ENT Exam: Positive: Atraumatic Neck Exam: Positive: Supple Chest Exam: Positive: Clear to auscultation Heart Exam: Positive: Rate Normal Telemetry: Positive: No significant arrhythmia Abdomen Exam: Positive: Normal bowel sounds Skin Exam: Positive: Nl turgor and temperature Neuro Exam: Positive: Strength at 5/5 X4 ext, Cranial Nerves 3-12 NL Assessment /Plan Problems (1) Discitis of cervical region Status: Acute Problem Text: Discitis of cervical region Unknown etiology for now Most likely hematogenous spread. Also patient immunocompromised due to CLL Blood culture, urine culture CRP and ESR pending Grabiel on is pending Cefepime, vancomycin ID consult notes awaited (2) Chronic lymphocytic leukemia of B-cell type in remission Status: Chronic Problem Text: Chronic lymphocytic leukemia Follow-up with oncologist in outpatient settings Plan/VTE VTE Prophylaxis Ordered?: Yes VS, I&O, 24H, Fishbone Vital Signs/I&O Vital Signs Date Time Temp Pulse Resp B/P (MAP) Pulse Ox O2 Delivery O2 Flow Rate FiO2 08/08/19 05:29 97.6 66 19 131/72 (91) 93 Room Air 08/07/19 21:12 2.0 I&O- Last 24 Hours up to 6 AM 08/08/19 06:00 Intake Total 830 ml Output Total 300 ml Balance 530 ml Laboratory Data 24H LABS Laboratory Tests 2 08/07/19 20:26: Immature Granulocyte % (Auto) 0.0, Neutrophils (%) (Auto) 57.6, Lymphocytes (%) (Auto) 30.7, Monocytes (%) (Auto) 10.1H, Eosinophils (%) (Auto) 1.1, Basophils (%) (Auto) 0.5, Neutrophils # (Auto) 2.5, Lymphocytes # (Auto) 1.3L, Monocytes # (Auto) 0.4, Eosinophils # (Auto) 0.1, Basophils # (Auto) 0.0, Nucleated Red Blood Cells % (auto) 0.0, Erythrocyte Sedimentation Rate 10, Anion Gap 7L, Glomerular Filtration Rate 55.9, Lactic Acid Level 1.0, Calcium Level 9.5, Total Creatine Kinase 50, Creatine Kinase MB 1.2, Creatine Kinase MB Relative Index 2.40, Troponin I < 0.02, C-Reactive Protein, Quantitative 0.30 08/08/19 08:02: Nucleated Red Blood Cells % (auto) 0.0, Anion Gap 6L, Glomerular Filtration Rate 55.3, Calcium Level 9.1, Magnesium Level 2.0 CBC/BMP Laboratory Tests 08/07/19 20:26 08/08/19 08:02 Microbiology Microbiology 08/08/19 Blood Culture, Received Pending 08/08/19 Blood Culture, Received Pending 08/07/19 Blood Culture, Received Pending INO MARCELINO MD Aug 08, 2019 12:33
[2019-08-08 14:00] VITALS: BP 119/62
--- NOTE | 2019-08-08 18:45 | REPVR ---
PROCEDURE INFORMATION: Exam: CT Cervical Spine Without Contrast Exam date and time: 08/08/2019 6:00 PM Age: 79 years old Clinical indication: Pain; Cervicalgia; Additional info: R/O discitis TECHNIQUE: Imaging protocol: Computed tomography images of the cervical spine without contrast. Radiation optimization: All CT scans at this facility use at least one of these dose optimization techniques: automated exposure control; mA and/or kV adjustment per patient size (includes targeted exams where dose is matched to clinical indication); or iterative reconstruction. COMPARISON: MRI-C SPINE W/O FOLL BY WITH 08/02/2019 8:15 AM FINDINGS: Vertebrae: Multilevel posterior facet joint arthropathy, accentuated on the left at C6-C7. 2 mm of retrolisthesis of C4 on C5. 3 mm of retrolisthesis of C5 on C6. Advanced degenerative endplate changes at C4-C5. Moderate degenerative endplate changes at C5-C6. No acute fracture. This modality is suboptimal for evaluation of discitis. Discs/Spinal canal/Neural foramina: Dorsal disc osteophyte complex at C4-C5. This results in mild to moderate spinal canal stenosis, moderate right and mild left neural foraminal narrowing. Dorsal disc osteophyte complex at C5-C6. Mild spinal canal stenosis and mild bilateral neural foraminal narrowing. Moderate disc space narrowing at C4-C5. Moderate to severe disc space narrowing at C5-C6. Soft tissues: Unremarkable. Lungs: Lung apices are normal. IMPRESSION: 1. Degenerative endplate changes, disc space narrowing, and posterior facet joint arthropathy. 2. Minimal retrolisthesis of C4 on C5 and C5 on C6. 3. Spinal canal stenosis and neural foraminal narrowing, as above. Electronically signed by: Dorothy Crawley On 08/08/2019 18:45:25 PM
--- NOTE | 2019-08-08 19:18 | ECHO ---
DATE OF PROCEDURE: 08/08/2019 AGE: 79 GENDER: Female HEIGHT: 66 inches WEIGHT: 200 pounds BODY SURFACE AREA: 20/01 m2 PATIENT LOCATION: Inpatient, [address] [place] [address], room 5132 REFERRING PHYSICIAN: Prashanth Min MD INDICATIONS: Sepsis 2-D MEASUREMENTS: RV: 2.9 cm LV: 3.8 cm Septum: 1.1 cm Posterior wall: 1.1 cm Aortic root: 3.4 cm LA: 3.7 cm LVEF: 75% DOPPLER MEASUREMENTS AV: 1.20 m/s LVOT: 0.8 m/s LVOT diameter: 1.8 cm MV-E: 70, A: 94, EA ratio: 0.7 Early mitral deceleration time: 225 ms E prime medial: 6.7 A prime medial: 8.1 E prime lateral: 10 Average, E/E prime ratio 8.4/PCWP: 12 mmHg PV: 0.7 m/s Pulmonary artery acceleration time: 130 ms RVSP: 30 mmHg IVC: 1.6 cm COMMENTS Normal sinus rhythm without intraventricular conduction disturbance. M-mode and two-dimensional echocardiography was performed with pulsed, continuous wave, color flow and tissue Doppler studies. Normal left ventricular size, wall thickness and wall motion. Normal left atrial size with degree of LV diastolic dysfunction but currently normal estimated mean left atrial pressure (physiological finding for age). Normal right heart chamber sizes and motion with estimated pulmonary arterial pressure. Normal IVC size and collapse against an elevated central venous pressure. Slight aortic valvular sclerosis without functional abnormality. Mildly thickened mitral annulus but normal leaflet excursion and very mild insufficiency (physiologic). Normal appearing tricuspid valve with very mild insufficiency (physiologic). No apparent intracardiac mass or pericardial effusion.
[2019-08-08] MEDS ORDERED: CEFEPIME HCL 1 GM in D5W MINI-BAG PLUS 50 ML IV SCH (21:00)
[2019-08-08] MEDS: DOCUSATE SODIUM 100 MG CAP PO SCH (22:04)
[2019-08-08] MEDS: EZETIMIBE 10 MG TAB (ZETIA) PO SCH (22:04)
[2019-08-08] MEDS: CHOLESTYRAMINE 4 GM PWD PKT PO SCH (22:05)
[2019-08-08 22:53] VITALS: BP 142/92
--- NOTE | 2019-08-09 04:40 | ECGEPIP ---
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
[2019-08-09 06:33] VITALS: BP 169/97
[2019-08-09 07:23] LABS: BASO % 0.3 % (0.0-1.0); EOS # 0.1 10^3/uL (0.0-0.5); EOS % 1.6 % (0.0-3.0); HEMATOCRIT 38.7 % (36.0-47.0); HEMOGLOBIN 12.2 g/dl (12.0-15.5); LYMPH # 1.1 10^3/uL (1.5-5.0); LYMPH % 35.8 % (24.0-44.0); MEAN CORPUSCULAR HGB CONC 31.5 g/dl (32.0-36.5); MEAN CORPUSCULAR VOLUME 95.1 fl (80.0-96.0); MONO # 0.3 10^3/uL (0.0-0.8); MONO % 8.9 % (0.0-5.0); NEUTROPHILS # 1.7 10^3/uL (1.5-8.5); NEUTROPHILS % 53.1 % (36.0-66.0); PLATELET COUNT, AUTOMATED 107 10^3/uL (150-450); RED BLOOD COUNT 4.07 10^6/uL (4.00-5.40); WHITE BLOOD COUNT 3.1 10^3/uL (4.0-10.0)
[2019-08-09 07:51] LABS: ALBUMIN 3.3 GM/DL (3.2-5.2); BILIRUBIN,TOTAL 0.4 MG/DL (0.2-1.0); CREATININE FOR GFR 1.13 MG/DL (0.55-1.30); GLOMERULAR FILTRATION RATE 49.7 (>39); TOTAL PROTEIN 6.5 GM/DL (6.4-8.2)
[2019-08-09] MEDS: ACETAMINOPHEN 650MG ER TAB (TYLENOL ARTHRITIS) PO SCH (08:14)
[2019-08-09] MEDS: VITAMIN D 1,000 INTERNATIONAL UNITS TABLET PO SCH (08:14)
[2019-08-09] MEDS: MULTIVITAMINS/MINERALS THERAP 1 TAB PO SCH (08:14)
[2019-08-09] MEDS: OMEGA-3 1000MG CAPSULE PO SCH (08:14)
[2019-08-09] MEDS: OMEPRAZOLE 20 MG CAP PO SCH (08:14)
[2019-08-09] MEDS: HEPARIN SOD (PORCINE) 5000 UNITS/ML VIAL (J1644 PER 1000UNITS) SC SCH (08:14)
--- NOTE | 2019-08-09 11:30 | CR ---
DATE OF CONSULTATION: 08/08/2019 INFECTIOUS DISEASE CONSULTATION REASON FOR CONSULTATION: Questionable cervical discitis. HISTORY OF PRESENT ILLNESS: Melissa Burns is a 79-year-old female with a history of CLL, treated in 2014 with rituximab and bendamustine, who presents with several weeks worsening neck pain, hand numbness and tingling. The patient reports that it started last February 2019 when she was at work and she fell. She landed on her hands and possibly hit her head. Her primary care physician ordered an x-ray of her neck and found that she had an arthritic neck. Over the past couple of weeks, she noted that she has very severe pain in her neck limiting her mobility. She has tingling and numbness in both of her hands with her right worse than her left. She also has some achiness and pain throughout her left side of her neck, left shoulder and left upper arm. She went to see her oncologist for her usual followup, who ordered an MRI of the lumbar and cervical spine. The patient was called to report to the hospital with the results of the MRI of the C-spine, as it was concerning for discitis. The patient denied any recent fevers, chills, nausea, vomiting, diarrhea or dysuria. She has not had any recent viral illnesses other than the common cold, possibly from her grandchildren. HOME MEDICATIONS: - Tylenol 650 mg twice a day - calcium carbonate one tablet daily - vitamin D 1000 units daily - cholestyramine 4 gram powder pack at night - Docusate 100 mg capsule at night - ezetimibe 10 mg by mouth at night - flaxseed oil 1000 mg by mouth daily - multivitamin by mouth daily - omega 3 fish oil one capsule by mouth twice a day - omeprazole 40 mg daily - gabapentin 100 mg three times a day as needed - meclizine 25 mg by mouth for dizziness - Zofran 4 mg by mouth every 8 hours as needed for nausea - MiraLAX as needed for constipation PAST MEDICAL HISTORY: Significant for: 1. Hyperlipidemia. 2. Gastroesophageal reflux disease (GERD). 3. History of chronic lymphocytic leukemia, treated as stated above in 2014. 4. Vertigo. PAST SURGICAL HISTORY: 1. Appendectomy in 1976. 2. Abdominal cyst in 2000. 3. Bilateral cataracts. FAMILY HISTORY: Father at 66 years old from car accident. Mother at 66 years old from a heart attack. Sibling -- one brother with a brain tumor. Two brothers and three sisters are healthy. She has three sons and one daughter that are healthy. She denies any family history of skin or pancreatic cancer. SOCIAL HISTORY: She is a former smoker. She denies any current smoking. Alcohol: She denies any alcohol use. She denies any illegal drug use. ALLERGIES: She is allergic to STATIN. REVIEW OF SYSTEMS: Negative other than hand numbness bilaterally, aching pain in her left shoulder and point tenderness in her neck. PHYSICAL EXAMINATION: VITAL SIGNS: At this time, temperature 98.3, pulse 71, respiratory rate 18, blood pressure 119/62 with a MAP of 81 and her pulse oximetry is 94% on room air. GENERAL: She is laying in bed. She is calm, cooperative, pleasant, and in no acute distress. HEAD: Normocephalic, atraumatic. HEENT: She has moist mucous membranes. Extraocular movements are intact. Her pupils are equal, round and reactive to light. NECK: Supple. No thyromegaly. No lymphadenopathy. She does have some point tenderness at the area of C4-C5, as well as some tenderness at the left shoulder to light palpation. CHEST: She has even chest rise. LUNGS: Clear to auscultation bilaterally with no adventitious breath sounds appreciated. CARDIOVASCULAR: Regular rate and rhythm with no murmurs, rubs or gallops. Normal S1, S2. ABDOMEN: Soft, nontender to palpation. Positive bowel sounds. No masses. No organomegaly. EXTREMITIES: Without clubbing, cyanosis or edema. NEUROLOGIC: She has 5/5 strength in her upper and lower extremities bilaterally. Deep tendon reflexes are present in her upper and lower extremities and are normal. Her cranial nerves II through XII are intact. Her right hand has decreased discernible sensation, light versus dull in her rght hand and somewhat in her left hand. LYMPHATICS: She has no enlarged lymph nodes in the cervical, periauricular or femoral chains. SKIN: She has no new rashes or lesions. PSYCHIATRIC: Her mood and affect are normal and appropriate. She is awake, alert, and oriented times three. LABORATORIES: Her CBC demonstrates a white blood cell count of 3.3, hemoglobin 12.2, hematocrit 37.2, platelet count of 140. Her chemistries: Sodium 144, potassium 3.9, chloride 109, carbon dioxide 29, BUN 15, creatinine 1.03. Her procalcitonin level is pending. Her C-reactive protein level is 0.30. In addition, her sed rate is 10. Blood cultures times three have been sent but are not resulted yet. IMAGING: She had a cervical spine MRI done on 08/02/2019 with the impression of: 1. Findings at C4-C5 worrisome for discitis. 2. Vague focus of T2 bright signal in the right hemicord at C2-C3. As indicated above, the finding may be artifactual, although a focus of demyelination not excluded. No abnormal enhancement. 3. Multilevel foraminal stenosis, as described above. 4. Mild cord impingement secondary to intravertebral osteophytes and bulging annulus at C4-C5. In addition, the patient underwent a lumbar spine MRI also on 08/02/2019, which demonstrated: 1. Schmorl's node inferior end-plate of L4. There is enhancement demonstrated within the Schmorl's node, which may suggest a subacute etiology. 2. Multilevel spinal stenosis, mild at L2-L3, moderate L3-L4 and mild at L4-L5. Also noted is a broad right paracentral disc protrusion at L5-S1 without obvious neural compromise. ASSESSMENT: This is a 79-year-old female with a history of CLL, who presented with increasing numbness and tingling in both of her hands, found to have abnormal MRI finding at C4-C5, as well as Schmorl's node at L4. The patient has been admitted for the workup of suspected discitis, although her sed rate is very low and her white blood cell count is normal, as well as her vitals. She has already been treated with vancomycin and cefepime empirically. PLAN: We have stopped the patient's cefepime and vancomycin at this time, as it does not appear that it is necessary. We are awaiting for blood culture results, but for the time being we have spoken with the radiologist who has reviewed her MRI and suggested that it may not be discitis or it may be an abnormal presentation of discitis. Therefore, given that she is relatively hemodynamically stable and does not appear infected at this time, we have ordered a CT of the neck of the C-spine in order to closer determine whether this is in fact discitis. In addition, we will await the results of the CT and we will determine whether the patient will possibly need a biopsy of her disc to determine if this is discitis or not. As she is stable, she can most likely be sent home in the next day as there is no need for her to be hospitalized at this time. SHAR
--- NOTE | 2019-08-09 12:47 | DS.PDOC ---
Discharge Summary General Date of Admission Aug 07, 2019 at 22:04 Date of Discharge 08/09/19 Discharge Summary PROCEDURES PERFORMED DURING STAY: None. ADMITTING DIAGNOSES: 1. Cervical discitis, CLL. DISCHARGE DIAGNOSES: 1. , CLL, cervical discitis ruled out, hyperlipidemia. COMPLICATIONS/CHIEF COMPLAINT: Chronic Lymphocytic Of C Cell Type In Remission. HISTORY OF PRESENT ILLNESS: Patient is 79 years old female with past medical history of CLL, vertigo, hyperlipidemia presented to the hospital with increased neck pain. Patient stated that neck pain radiated to the lumbar area, is also associated with hands numbness and tingling bilaterally. Patient stated that she developed these symptoms for past month. Patient was seen by oncologist and recommended MRI of the spine. MRI of the spine showed findings at C4-C5 worrisome for discitis. Patient denied any fever, chills, nausea, vomiting, diarrhea or dysuria. Patient denied any fecal or urinary incontinence. In ER patient was found to have no leukocytosis, no fever. Cefepime IV started. HOSPITAL COURSE: Patient was admitted with a possible cervical disc tightest as seen on MRI. Patient follows up with hematology. Hence, they referred patient to emergency room for admission. Patient was seen by the hospitalist team admitted and started on IV cefepime. Infectious disease consult was called. Patient had a repeat CT of the C-spine done ,which is not consistent with cervical discitis ,hence discitis was ruled out on the basis of clinical exam. CAT scan of the C- spine report an infectious disease consult. Antibiotics were DC'd and the patient was advised to be discharged home and follow-up with Dr. Gray is an outpatient.. DISCHARGE MEDICATIONS: Please see below. ALLERGIES: Please see below. PHYSICAL EXAMINATION ON DISCHARGE: VITAL SIGNS: Please see below. GENERAL: Within normal limits HEENT: PERRLA. Extraocular muscles intact NECK: Supple CARDIOVASCULAR EXAMINATION: S1, S2, regular RESPIRATORY EXAMINATION: Clear to A&P ABDOMINAL EXAMINATION: Benign EXTREMITIES: No clubbing, cyanosis, edema SKIN: Normal NEUROLOGICAL EXAMINATION: . No focal motor sensory deficit PSYCHIATRIC EXAMINATION: Normal LABORATORY DATA: Please see below. IMAGING: CT C-spine:IMPRESSION: 1. Degenerative endplate changes, disc space narrowing, and posterior facet joint arthropathy. 2. Minimal retrolisthesis of C4 on C5 and C5 on C6. 3. Spinal canal stenosis and neural foraminal narrowing, as above. PROGNOSIS: Good ACTIVITY: As tolerated. DIET: As tolerated DISCHARGE PLAN: Follow-up with the infectious disease as an outpatient DISPOSITION: Home. DISCHARGE INSTRUCTIONS: 1. Follow with infectious disease and heme IS an outpatient. ITEMS TO FOLLOWUP ON ON OUTPATIENT: 1. Follow-up with heme/onc infectious disease as outpatient. DISCHARGE CONDITION: Stable. TIME SPENT ON DISCHARGE: 23 minutes. Vital Signs/I&Os Vital Signs Date Time Temp Pulse Resp B/P (MAP) Pulse Ox O2 Delivery O2 Flow Rate FiO2 08/09/19 06:33 98.5 66 20 169/97 (121) 96 Room Air 08/07/19 21:12 2.0 I&O- Last 24 Hours up to 6 AM 08/09/19 06:00 Intake Total 1840 ml Output Total 1200 ml Balance 640 ml Laboratory Data Labs 24H Laboratory Tests 2 08/09/19 06:45: Immature Granulocyte % (Auto) 0.3, Neutrophils (%) (Auto) 53.1, Lymphocytes (%) (Auto) 35.8, Monocytes (%) (Auto) 8.9H, Eosinophils (%) (Auto) 1.6, Basophils (%) (Auto) 0.3, Neutrophils # (Auto) 1.7, Lymphocytes # (Auto) 1.1L, Monocytes # (Auto) 0.3, Eosinophils # (Auto) 0.1, Basophils # (Auto) 0.0, Nucleated Red Bloo d Cells % (auto) 0.0 08/09/19 06:46: Anion Gap 7L, Glomerular Filtration Rate 49.7, Calcium Level 9.0, Total Bilirubin 0.4, Aspartate Amino Transf (AST/SGOT) 13, Alanine Aminotransferase (ALT/SGPT) 27, Alkaline Phosphatase 73, Total Protein 6.5, Albumin 3.3, Albumin/Globulin Ratio 1.03 CBC/BMP Laboratory Tests 08/09/19 06:45 08/09/19 06:46 Microbiology Microbiology 08/08/19 Blood Culture - Preliminary, Resulted No growth after 24 hours . All specim... 08/08/19 Blood Culture - Preliminary, Resulted No growth after 24 hours . All specim... 08/07/19 Blood Culture - Preliminary, Resulted No growth after 24 hours . All specim... Discharge Medications Scheduled Acetaminophen (Tylenol Arthritis) 650 Mg Tab, 1,300 MG PO BID, (Reported) Calcium Carb, Citrate/Vit D3 (Citracal + D ER Tablet) 1 Tab Tab, 1 TAB PO DAILY, (Reported) Cholecalciferol (Vitamin D3) (Vitamin D3) 1,000 Unit Tablet, 1,000 UNITS PO DAILY, (Reported) Cholestyramine (with Sugar) (Questran Packet) 4 Gm Powd.pack, 4 GM PO QHS, (Reported) Docusate Sodium (Colace) 100 Mg Capsule, 100 MG PO QHS, (Reported) Ezetimibe (Zetia) 10 Mg Tab, 10 MG PO QHS, (Reported) Flaxseed Oil (Flaxseed) 1,000 Mg Capsule, 1 CAP PO DAILY, (Reported) Multivitamins (Thera M Plus Tablet) 1 Each Tablet, 1 TAB PO DAILY, (Reported) [place]-3/Dha/Epa/Fish Oil (Fish Oil EC 1,000 mg Softgel) 1 Cap Cap, 1 CAP PO BID, (Reported) Omeprazole (Omeprazole) 40 Mg Cap, 40 MG PO DAILY, (Reported) Scheduled PRN Gabapentin (Gabapentin) 100 Mg Cap, 100 MG PO TID PRN for PAIN, (Reported) Meclizine HCl (Meclizine HCl) 25 Mg Tab, 25 MG PO for DIZZINESS, (Reported) Ondansetron (Ondansetron Odt) 4 Mg Tab, 4 MG PO Q8H PRN for NAUSEA, (Reported) Polyethylene Glycol 3350 (Miralax) 119 Gm Powder, 17 GM PO DAILY PRN for CONSTIPATION, (Reported) dilute in 8 ounces of water or juice Allergies Coded Allergies: Sqvddfp-Vvo-Xaq Reductase Inhibitor (Verified Adverse Reaction, Unknown, LEG CRAMPS, 09/27/18) INO MARCELINO MD Aug 09, 2019 12:47
[2019-08-09 14:02] VITALS: BP 142/89
--- NOTE | 2019-08-10 08:48 | IPN ---
DATE OF SERVICE: 08/09/2019 Mrs. uBrns was seen this morning to followup on abnormal MRI finding with possibility of cervical discitis. The patient continues complaining of some mild neck pain which she describes as 3/10, some intermittent tingling in her hands that come and go, and left shoulder pain. She usually self-treats with Tylenol. She is asking for a [id number] slip if she is discharged today. She has had no fever or chills. No nausea, vomiting, or diarrhea. No abdominal pain. CT neck without contrast was done on 08/08/[address] Garcia. Read by Dr. Dorothy Crawley. It showed degenerative endplate changes, disc space narrowing, posterior facet arthropathy, and retrolisthesis of C4 on C5 and C5 on C6 with spinal canal stenosis. There was moderate to severe narrowing at C5-C6. There is no mention of discitis. Dr. Garcia has reviewed the CT, as well, and he agrees with above reading. LABORATORIES: White count 3.1, hemoglobin 12.2, hematocrit 38.7, platelets 107, ESR 10. Sodium 143, potassium 4, chloride 108, bicarbonate 28, BUN 18, creatinine 1.13. PHYSICAL EXAMINATION: Cervical spine tenderness at around C4, 5, 6. Normal neck flexion. Normal upper extremity strength. Normal grasp, biceps and triceps strength. Heart: Normal S1, S2. No murmurs. Lungs are clear. No wheezes, rales, or rhonchi. Abdomen: Soft, nontender. No hepatosplenomegaly. Extremities: No edema. IMPRESSION: 1. Severe degenerative disc disease with spinal canal (dictation cut off) of the cervical spine were concerning for C4-C5 discitis, but clinically the patient does not have discitis. Her sedimentation rate and C-reactive protein (CRP) are normal. Procalcitonin is normal. CT of the neck is not consistent with discitis, either; and, therefore, antibiotics were discontinued and the patient will be followed up clinically. 2. History of CLL, currently not on medication. PLAN: Discharge the patient home on no antibiotics. Followup with Dr. Gray in 3-4 weeks. Will repeat C-reactive protein (CRP) and sedimentation rate if there is worsening (dictation cut off) followup, but at that this point clinically this is (dictation cut off). Discussed the case with the hospitalist, Dr. Rodriguez, who has discharged the patient.
== END 2019-08-09 14:40 | disposition home or self-care (01) | DRG 552 ==
LOC: M ED 17:57 → M ED INP 22:04 → ENRESERV 22:12 → M MS5PR 22:55
PROVIDERS: ADMIT Internal Medicine; ATTEND Internal Medicine
DX: M46.42 Discitis, unspecified, cervical region (principal); C91.11 Chronic lymphocytic leukemia of B-cell type in remission; E78.5 Hyperlipidemia, unspecified; K21.9 Gastro-esophageal reflux disease without esophagitis; R42 Dizziness and giddiness; M48.061 Spinal stenosis, lumbar region without neurogenic claudication; Z90.49 Acquired absence of other specified parts of digestive tract; Z98.41 Cataract extraction status, right eye; Z98.42 Cataract extraction status, left eye; Z87.891 Personal history of nicotine dependence; Z79.899 Other long term (current) drug therapy; Z88.8 Allergy status to other drugs, medicaments and biological substances

== ENCOUNTER → 2019-08-14 | Outpatient (REF) | payer MEDICARE, OTHER ==
[~2019-08-14] MED LIST changes: +COLA100C5 PO; +GNP1000C11 PO; +MIRA3350 PO; +QUES4POW PO; +VITAD1000T PO; +VITMTA PO
== END ==
LOC: M LAB REF 09:23
PROVIDERS: ATTEND Dermatology
DX: L90.5 Scar conditions and fibrosis of skin (principal); L57.8 Other skin changes due to chronic exposure to nonionizing radiation

== ENCOUNTER → 2019-08-27 | Outpatient (REF) | payer MEDICARE, OTHER ==
[2019-08-27 11:22] LABS: BASO % 0.2 % (0.0-1.0); EOS % 0.6 % (0.0-3.0); HEMATOCRIT 39.9 % (36.0-47.0); HEMOGLOBIN 12.9 g/dl (12.0-15.5); LYMPH # 1.6 10^3/uL (1.5-5.0); LYMPH % 32.5 % (24.0-44.0); MEAN CORPUSCULAR HEMOGLOBIN 30.2 pg (27.0-33.0); MEAN CORPUSCULAR HGB CONC 32.3 g/dl (32.0-36.5); MEAN CORPUSCULAR VOLUME 93.4 fl (80.0-96.0); MONO # 0.4 10^3/uL (0.0-0.8); MONO % 7.5 % (0.0-5.0); NEUTROPHILS % 58.8 % (36.0-66.0); PLATELET COUNT, AUTOMATED 180 10^3/uL (150-450); RED BLOOD COUNT 4.27 10^6/uL (4.00-5.40)
[2019-08-27 11:50] LABS: ERYTHROCYTE SEDIMENTATION RATE 12 mm/hr (0-30)
== END ==
LOC: M SFHCPLAZ 10:02
PROVIDERS: ATTEND Internal Medicine Infectious Disease
DX: M54.12 Radiculopathy, cervical region (principal)
CPT/HCPCS: 36415; 85025; 85652; 86140; G0463

== ENCOUNTER → 2019-09-23 | Outpatient (CLI) | payer MEDICARE, OTHER ==
--- NOTE | 2019-09-23 10:59 | REP ---
REASON: Shoulder pain. PRIORS: None. There is evidence of mild hypertrophic degenerative change seen involving the acromioclavicular joint. The acromion process is type 2. There is asymmetric glenohumeral joint space narrowing with inferior glenoid and humeral head marginal osteophytosis. There are a few subtle areas of focal rarified bone in the glenoid and humeral head less than a centimeter in size. There is no fracture, dislocation, or subluxation. There is no evidence of a glenohumeral joint effusion. IMPRESSION: Likely chronic changes as described above. Tiny areas of rarified bone without a definite area of lysis. If a lytic lesion is of clinical concern then consider MRI before and after intravenous gadolinium. Electronically Signed by Amandeep Calzada DO 09/23/2019 01:00 P
== END ==
LOC: M RAD 09:29
PROVIDERS: ATTEND Internal Medicine Hematology & Oncology
DX: C95.90 Leukemia, unspecified not having achieved remission (principal)

== ENCOUNTER → 2019-12-26 | Outpatient (CLI) | payer MEDICARE, OTHER ==
[~2019-12-26] MED LIST changes: +ARTH650T17 PO
--- NOTE | 2019-12-26 11:10 | REPMRS ---
Patient History The patient states she had a clinical breast exam in September 2019. No known family history of cancer. No Hormone Replacement Therapy Digital Woman Screen Mammo: December 26, 2019 - Exam #: [id number] Bilateral CC and MLO view(s) were taken. Technologist: Melissa Rowley, Technologist Prior study comparison: December 24, 2018, bilateral digital woman screen mammo performed at [facility]. December 25, 2017, bilateral digital woman screen mammo performed at [facility]. January 13, 2017, digital woman screen mammo performed at [facility]. FINDINGS: There are scattered fibroglandular densities. The Volpara volumetric breast density category is:B. There has been no change in the appearance of the mammogram from the prior studies. There is a mild amount of scattered fibroglandular density which is fairly symmetric. There is no interval development of dominant mass, architectural distortion, or grouped microcalcification suggestive of malignancy. 3-D tomosynthesis shows no additional findings. Assessment: BI-RADS/ACR category 1 mammogram. Negative Mammogram. Recommendation Routine screening mammogram of both breasts in 1 year (for women over age 40). This patient's Lifetime Breast Cancer Risk is estimated at 2.3 %. This mammogram was interpreted with the aid of an FDA-approved computer-aided dectection system. Electronically Signed By: Herbie Garcia MD 12/26/19 [id number]
== END ==
LOC: M WHC 10:20
PROVIDERS: ATTEND Physician Assistant
DX: Z12.31 Encounter for screening mammogram for malignant neoplasm of breast (principal)

== ENCOUNTER → 2020-01-10 | Outpatient (CLI) | payer MEDICARE, OTHER ==
[~2020-01-10] MED LIST changes: +ACET650T61 PO; +D31000TA2 PO; -TYLE650T35 PO; -VITAD1000T PO
== END ==
LOC: M LABSMTC 10:30
PROVIDERS: ATTEND Orthopaedic Surgery
DX: Z01.818 Encounter for other preprocedural examination (principal); Z11.59 Encounter for screening for other viral diseases

== ENCOUNTER → 2020-06-24 | Outpatient (REF) | payer MEDICARE, OTHER | LOC: M SFHCADAM 15:04 | PROVIDERS: ATTEND Physician Assistant | DX: R30.0 Dysuria (principal) | CPT/HCPCS: 81002; 87086; G0463 ==

== ENCOUNTER → 2020-12-24 | Outpatient (CLI) | payer MEDICARE, OTHER ==
[~2020-12-24] MED LIST changes: +OMEP40CA4 PO; -OMEP40CA97 PO
--- NOTE | 2020-12-24 15:05 | REPMRS ---
Patient History The patient states she had a clinical breast exam in November 2020. Patient is postmenopausal, had previous chemotherapy at age 75, and has history of other cancer at age 70. Family history of breast cancer at age 52 in daughter. No Hormone Replacement Therapy Patient states no breast complaints today. Patient has signed MRS History Sheet. Digital Woman Screen Mammo: December 24, 2020 - Exam #: [id number] Bilateral CC and MLO view(s) were taken. Technologist: Ct Hidalgo, Technologist Prior study comparison: December 26, 2019, bilateral digital woman screen mammo performed at [facility]. December 24, 2018, bilateral digital woman screen mammo performed at [facility]. FINDINGS: There are scattered fibroglandular densities. Screening. Digital screening (2D) mammography was performed bilaterally in the CC and MLO projections. Additionally, breast tomosynthesis (3D mammography) was performed bilaterally in the CC and MLO projections. Todays exam was compared to the prior exam/exams. By history, the patient has no complaints of a palpable breast abnormality or other significant breast complaints. The breasts are unchanged in size and shape. There are no mis-soft tissue densities or spiculated masses. There is no internal architectural distortion. Once again, stable benign appearing calcifications are seen.There are no suspicious mis-calcific clusters. Skin thickening or nipple retraction is not present. IMPRESSION: BI-RADS Category 2- Benign Findings. There is no evidence of malignant alteration of the breasts. Followup examination recommended in one year. The Volpara volumetric breast density category is B, there are scattered areas of fibroglandular densities. This mammogram was read with the assistance of [facility],an FDA approved computer aided detection system for mammography. The lifetime Tyrer-Cuzick score is 3.9 % Negative x-ray reports should not delay surgical consultation if a dominant or clinically suspicious mass is present. Not all breast cancers can be identified by mammography. Therefore, we recommend that you continue to perform regular breast self-examination and physical examination and then promptly contact your physician of any concerns or changes. Adenosis and dense breasts may obscure an underlying neoplasm. Assessment: BI-RADS/ACR category 2 mammogram. Benign Findings. Recommendation Routine screening mammogram of both breasts in 1 year. Electronically Signed By: Amandeep Calzada, DO 12/24/20 [id number]
== END ==
LOC: M WHC 14:16
PROVIDERS: ATTEND Physician Assistant
DX: Z12.31 Encounter for screening mammogram for malignant neoplasm of breast (principal)

== ENCOUNTER → 2021-09-23 | Outpatient (CLI) | payer MEDICARE, OTHER ==
[~2021-09-23] MED LIST changes: -D31000TA2 PO; +VITA100093 PO
== END ==
LOC: M RAD 11:43
PROVIDERS: ATTEND Internal Medicine Medical Oncology
DX: M85.9 Disorder of bone density and structure, unspecified (principal); M54.50 Low back pain, unspecified

== ENCOUNTER → 2021-10-22 | Outpatient (CLI) | payer MEDICARE, OTHER ==
[~2021-10-22] MED LIST changes: +ATIV1TAB7 PO
== END ==
LOC: M PLARAD 10:13
PROVIDERS: ATTEND Internal Medicine Medical Oncology
DX: M51.26 Other intervertebral disc displacement, lumbar region (principal)

== ENCOUNTER → 2022-05-18 | Outpatient (CLI) | payer MEDICARE, OTHER ==
[~2022-05-18] MED LIST changes: +FISH10005 PO; -FISH7.5C PO; +SYST1SOL4 OP
== END ==
LOC: M WHC 12:48
PROVIDERS: ATTEND Family Medicine
DX: Z12.31 Encounter for screening mammogram for malignant neoplasm of breast (principal); R92.2 Inconclusive mammogram

== ENCOUNTER → 2022-06-22 | Outpatient (CLI) | payer MEDICARE, OTHER | LOC: M WHC 13:10 | PROVIDERS: ATTEND Family Medicine | DX: Z12.31 Encounter for screening mammogram for malignant neoplasm of breast (principal); R92.8 Other abnormal and inconclusive findings on diagnostic imaging of breast | CPT/HCPCS: 77065; G0279 ==

== ENCOUNTER → 2023-02-03 | Outpatient (CLI) | payer MEDICARE, OTHER ==
[~2023-02-03] MED LIST changes: +ISOVUE-300 61% 100ML VIAL As Ordered ONE; +LIDOCAINE 1% MDV 20ML VIAL As Ordered ONE; +META0.52 PO; +TRIAMCINOLONE ACETONIDE SUSP 40MG/ML 1ML VIAL As Ordered ONE
== END ==
LOC: M RAD 13:52
PROVIDERS: ATTEND Orthopaedic Surgery
DX: M16.0 Bilateral primary osteoarthritis of hip (principal)
CPT/HCPCS: 20610; 77002; J3301; Q9967

== ENCOUNTER → 2023-02-17 | Outpatient (REF) | payer OTHER ==
[~2023-02-17] MED LIST changes: -ISOVUE-300 61% 100ML VIAL As Ordered ONE; -LIDOCAINE 1% MDV 20ML VIAL As Ordered ONE; -TRIAMCINOLONE ACETONIDE SUSP 40MG/ML 1ML VIAL As Ordered ONE
== END ==
LOC: M SFHCADAM 11:44
PROVIDERS: ATTEND Physician Assistant
DX: Z00.00 Encounter for general adult medical examination without abnormal findings (principal)

== ENCOUNTER → 2023-02-28 | Outpatient (REF) | payer MEDICARE, OTHER ==
[~2023-02-28] MED LIST changes: +EZET10TA58 PO; +MECL-209 PO; -MECL1TAB31 PO; -ZETI10TA16 PO
== END ==
LOC: M SFHCDERM 17:37
PROVIDERS: ATTEND Nurse Practitioner Family
DX: L82.0 Inflamed seborrheic keratosis (principal)

== ENCOUNTER → 2023-03-08 | Outpatient (CLI) | payer MEDICARE, OTHER | LOC: M PLAIMG 10:00 | PROVIDERS: ATTEND Orthopaedic Surgery | DX: M47.896 Other spondylosis, lumbar region (principal) ==

== ENCOUNTER → 2023-07-17 | Outpatient (CLI) | payer MEDICARE, OTHER ==
[~2023-07-17] MED LIST changes: +BENZ150C2 PO
== END ==
LOC: M WHC 11:45
PROVIDERS: ATTEND Physician Assistant
DX: R92.8 Other abnormal and inconclusive findings on diagnostic imaging of breast (principal)

== ENCOUNTER → 2023-07-24 | Outpatient (REF) | payer MEDICARE, OTHER ==
[2023-07-24 16:18] LABS: BASO % 0.2 % (0.0-1.0); EOS # 0.1 10^3/uL (0.0-0.5); EOS % 0.4 % (0.0-3.0); HEMATOCRIT 38.9 % (36.0-47.0); HEMOGLOBIN 12.3 g/dl (12.0-15.5); LYMPH # 17.2 10^3/uL (1.5-5.0); LYMPH % 78.3 % (24.0-44.0); MEAN CORPUSCULAR HEMOGLOBIN 30.8 pg (27.0-33.0); MEAN CORPUSCULAR HGB CONC 31.6 g/dl (32.0-36.5); MEAN CORPUSCULAR VOLUME 97.3 fl (80.0-96.0); MONO # 0.9 10^3/uL (0.0-0.8); MONO % 4.2 % (2.0-8.0); NEUTROPHILS # 3.4 10^3/uL (1.5-8.5); NEUTROPHILS % 15.6 % (36.0-66.0); PLATELET COUNT, AUTOMATED 124 10^3/uL (150-450); WHITE BLOOD COUNT 21.9 10^3/uL (4.0-10.0)
[2023-07-24 17:06] LABS: ALBUMIN 3.9 G/DL (3.2-5.2); ALKALINE PHOSPHATASE 60 U/L (46-116); ALT/SGPT 20 U/L (7.0-40); AST/SGOT 14 U/L (<34); BILIRUBIN,TOTAL 0.4 MG/DL (0.3-1.2); BLOOD UREA NITROGEN 19 MG/DL (9-23); CALCIUM LEVEL 9.7 MG/DL (8.3-10.6); CARBON DIOXIDE LEVEL 32 MMOL/L (20-31); CHLORIDE LEVEL 106 MMOL/L (98-107); CREATININE FOR GFR 0.84 MG/DL (0.55-1.30); GLOMERULAR FILTRATION RATE > 60.0 (>32); GLUCOSE, FASTING 91 MG/DL (74-106); SODIUM LEVEL 142 MMOL/L (136-145); TOTAL PROTEIN 6.5 G/DL (5.7-8.2)
== END ==
LOC: M SFHCADAM 13:51
PROVIDERS: ATTEND Family Medicine
DX: Z01.818 Encounter for other preprocedural examination (principal)

== ENCOUNTER → 2023-08-17 | Outpatient (CLI) | payer MEDICARE, OTHER ==
[~2023-08-17] MED LIST changes: +MELO15TA28
[2023-08-17 11:10] VITALS: TEMP 97.5
[2023-08-17 12:19] VITALS: BP 142/94; O2SAT 97
== END ==
LOC: M WHCPRO 10:10
PROVIDERS: ATTEND Family Medicine
DX: C50.411 Malignant neoplasm of upper-outer quadrant of right female breast (principal); R92.8 Other abnormal and inconclusive findings on diagnostic imaging of breast; N63.11 Unspecified lump in the right breast, upper outer quadrant

== ENCOUNTER → 2023-10-13 | Outpatient (REF) | payer MEDICARE, OTHER ==
[~2023-10-13] MED LIST changes: -BENZ150C2 PO; +BENZ150C5 PO; +KETO2CR TOP; +KETO2SHA8 TOP; +NYST100084 TOP
[2023-10-13 13:37] LABS: BLOOD UREA NITROGEN 18 MG/DL (9-23); CALCIUM LEVEL 10.3 MG/DL (8.3-10.6); CARBON DIOXIDE LEVEL 29 MMOL/L (20-31); CHLORIDE LEVEL 107 MMOL/L (98-107); CREATININE FOR GFR 0.91 MG/DL (0.55-1.30); GLOMERULAR FILTRATION RATE > 60.0 (>32); GLUCOSE, FASTING 94 MG/DL (74-106); POTASSIUM SERUM 4.4 MMOL/L (3.5-5.1); SODIUM LEVEL 138 MMOL/L (136-145)
[2023-10-13 13:41] LABS: HEMATOCRIT 41.3 % (36.0-47.0); HEMOGLOBIN 13.2 g/dl (12.0-15.5); MEAN CORPUSCULAR HEMOGLOBIN 30.3 pg (27.0-33.0); MEAN CORPUSCULAR VOLUME 94.7 fl (80.0-96.0); PLATELET COUNT, AUTOMATED 123 10^3/uL (150-450); RED BLOOD COUNT 4.36 10^6/uL (4.00-5.40)
== END ==
LOC: M SFHCADAM 10:24
PROVIDERS: ATTEND Family Medicine
DX: Z01.818 Encounter for other preprocedural examination (principal); C50.911 Malignant neoplasm of unspecified site of right female breast

== ENCOUNTER → 2023-11-22 | Outpatient (CLI) | payer MEDICARE, OTHER ==
[~2023-11-22] MED LIST changes: +LETR2.5T2 PO; +PROHANCE 279.3MG/ML 15ML VIAL ONE
== END ==
LOC: M PLAIMG 13:51
PROVIDERS: ATTEND Physical Medicine & Rehabilitation
DX: M48.062 Spinal stenosis, lumbar region with neurogenic claudication (principal)
CPT/HCPCS: 72197; A9576

== ENCOUNTER → 2023-11-29 | Outpatient (CLI) | payer MEDICARE, OTHER ==
[~2023-11-29] MED LIST changes: +ONDA-282 PO; -ONDA4TAB6 PO; -PROHANCE 279.3MG/ML 15ML VIAL ONE
== END ==
LOC: M WHC 09:43
PROVIDERS: ATTEND Internal Medicine Medical Oncology
DX: M85.852 Other specified disorders of bone density and structure, left thigh (principal); M85.88 Other specified disorders of bone density and structure, other site; C50.411 Malignant neoplasm of upper-outer quadrant of right female breast; C91.10 Chronic lymphocytic leukemia of B-cell type not having achieved remission; Z78.0 Asymptomatic menopausal state

== ENCOUNTER → 2023-12-19 | Outpatient (CLI) | payer MEDICARE, OTHER | LOC: M RAD 09:40 | PROVIDERS: ATTEND Physical Medicine & Rehabilitation | DX: M47.896 Other spondylosis, lumbar region (principal) | CPT/HCPCS: 78306; A9503 ==

== ENCOUNTER 2023-12-22 14:58 | Outpatient (RCR) | payer MEDICARE, OTHER | END 2023-12-24 | LOC: M ONCR 14:58 | PROVIDERS: ATTEND General Practice | DX: Z51.0 Encounter for antineoplastic radiation therapy (principal); C50.411 Malignant neoplasm of upper-outer quadrant of right female breast ==

== ENCOUNTER → 2024-07-01 | Outpatient (CLI) | payer MEDICARE, OTHER ==
[~2024-07-01] MED LIST changes: +GABA-1171
== END ==
LOC: M WHC 09:54
PROVIDERS: ATTEND Surgery
DX: Z12.31 Encounter for screening mammogram for malignant neoplasm of breast (principal)

== ENCOUNTER → 2024-07-25 | Outpatient (CLI) | payer MEDICARE, OTHER ==
[~2024-07-25] MED LIST changes: +FURO20TA2 PO
== END ==
LOC: M ONCR 09:50
PROVIDERS: ATTEND General Practice
DX: C50.411 Malignant neoplasm of upper-outer quadrant of right female breast (principal); R60.0 Localized edema; Z17.0 Estrogen receptor positive status [ER+]; Z17.21 Progesterone receptor positive status; Z17.32 Human epidermal growth factor receptor 2 negative status; Z92.29 Personal history of other drug therapy; Z87.891 Personal history of nicotine dependence; Z88.8 Allergy status to other drugs, medicaments and biological substances; Z79.1 Long term (current) use of non-steroidal anti-inflammatories (NSAID); Z79.899 Other long term (current) drug therapy; Z92.3 Personal history of irradiation; Z98.890 Other specified postprocedural states

== ENCOUNTER → 2024-08-21 | Outpatient (CLI) | payer MEDICARE, OTHER | LOC: M RAD 11:18 | PROVIDERS: ATTEND Internal Medicine Medical Oncology | DX: C91.10 Chronic lymphocytic leukemia of B-cell type not having achieved remission (principal) ==

== ENCOUNTER → 2024-11-05 | Outpatient (CLI) | payer MEDICARE, OTHER ==
[~2024-11-05] MED LIST changes: +KETO120S5 TOP; -KETO2SHA8 TOP; +MULTIVITAMIN PO
== END ==
LOC: M RAD 14:50
PROVIDERS: ATTEND Student in an Organized Health Care Education/Training Program
DX: M48.062 Spinal stenosis, lumbar region with neurogenic claudication (principal)

== ENCOUNTER → 2025-02-21 | Outpatient (CLI) | payer MEDICARE, OTHER ==
[2025-02-21 08:52] LABS: PLATELET COUNT, AUTOMATED 120 10^3/uL (150-450)
[2025-02-21 09:08] LABS: ERYTHROCYTE SEDIMENTATION RATE 11 mm/hr (0-30)
[2025-02-21 09:12] LABS: INR 0.98
[2025-02-21 09:19] LABS: ALT/SGPT 20.0 U/L (7.0-40); AST/SGOT 20.0 U/L (<34); CALCIUM LEVEL 10.0 MG/DL (8.3-10.6); CARBON DIOXIDE LEVEL 32.0 MMOL/L (20-31); CHLORIDE LEVEL 104.0 MMOL/L (98-107); CREATININE FOR GFR 0.89 MG/DL (0.55-1.30); GLOMERULAR FILTRATION RATE 64.7 (>32); POTASSIUM SERUM 4.1 MMOL/L (3.5-5.1); SODIUM LEVEL 145.0 MMOL/L (136-145)
== END ==
LOC: M RAD 08:04
PROVIDERS: ATTEND Orthopaedic Surgery
DX: Z01.812 Encounter for preprocedural laboratory examination (principal); M16.12 Unilateral primary osteoarthritis, left hip; Z79.01 Long term (current) use of anticoagulants

== ENCOUNTER → 2025-04-30 | Outpatient (CLI) | payer MEDICARE, OTHER | LOC: M ONCR 08:40 | PROVIDERS: ATTEND Radiology Radiation Oncology | DX: C50.411 Malignant neoplasm of upper-outer quadrant of right female breast (principal); Z92.3 Personal history of irradiation; Z17.0 Estrogen receptor positive status [ER+]; Z17.21 Progesterone receptor positive status; Z17.32 Human epidermal growth factor receptor 2 negative status; Z92.21 Personal history of antineoplastic chemotherapy; Z92.29 Personal history of other drug therapy; Z88.8 Allergy status to other drugs, medicaments and biological substances; Z79.02 Long term (current) use of antithrombotics/antiplatelets; Z79.899 Other long term (current) drug therapy; Z87.891 Personal history of nicotine dependence ==